=== PATIENT | female | born 1970 ===

== ENCOUNTER 2016-05-29 06:29 | Day surgery (SDC) | payer OTHER ==
[2016-05-19 10:17] VITALS: BMI 27.8
[2016-05-29 07:17] LABS: ADD MANUAL DIFF? NO
[2016-05-29 07:23] LABS: BASO # 0.03 K/mm3 (0.0-2.0); BASO % 0.8 % (0.0-3.0); EOS # 0.2 (0.0-0.7); EOS % 4.6 % (1.5-5.0); GRAN # 1.49 (1.4-6.5); GRAN % 38.3 % (50.0-68.0); HEMATOCRIT 39.7 % (36.0-48.0); LYMPH # 1.9 (1.2-3.4); LYMPH % 47.6 % (22.0-35.0); MEAN CELL VOLUME 86.1 fL (80.0-105.0); MEAN CORPUSCULAR HEMOGLOBIN 30.8 pg (25.0-35.0); MEAN CORPUSCULAR HGB CONC 35.8 g/dl (31.0-37.0); MEAN PLATELET VOLUME 9.9 fl (7.0-11.0); MONO # 0.3 (0.1-0.6); MONO % 8.7 % (1.0-6.0); PLATELET COUNT 207 10^3/uL (120.0-450.0); RED CELL DISTRIBUTION WIDTH 12.7 % (11.5-14.5); WHITE BLOOD COUNT 3.9 10^3/ul (4.5-11.0)
[2016-05-29 07:35] LABS: INR 1.07 (0.93-1.08)
[2016-05-29 07:41] LABS: ALB/GLOB RATIO 1.2 (1.1-1.8); ALKALINE PHOSPHATASE 81 U/L (38-133); ALT/SGPT 27 U/L (7-56); AST/SGOT 37 U/L (15-39); BILIRUBIN,TOTAL 1.1 mg/dL (0.2-1.3); BLOOD UREA NITROGEN 14 mg/dL (7-21); CALCIUM 9.3 mg/dL (8.4-10.5); CARBON DIOXIDE 28 mmol/L (21-33); CHLORIDE 103 mmol/L (98-107); GFR AFRICAN-AMERICAN > 60; GLUCOSE,RANDOM 88 mg/dL (70-110); SODIUM 141 mmol/L (132-148); TOTAL PROTEIN 7.8 g/dL (5.8-8.3)
[2016-05-29] MEDS ORDERED: Propofol 10 mg/ml Inj (20 ML) ONE (08:19)
[2016-05-29] MEDS ORDERED: Lidocaine 2% Inj (20ml) ONE (08:19)
[2016-05-29] MEDS ORDERED: Lactated Ringer's 1,000 ML IV SCH (09:00)
[2016-05-29 09:03] VITALS: TEMP 97.9
[2016-05-29 10:03] VITALS: BP 113/76; PULSE 63; RESP 16; O2SAT 100
== END 2016-05-29 10:07 | disposition home or self-care (01) ==
LOC: ENDO 06:29
PROVIDERS: ATTEND Internal Medicine
DX: K57.10 Diverticulosis of small intestine without perforation or abscess without bleeding (principal); K83.8 Other specified diseases of biliary tract; K29.70 Gastritis, unspecified, without bleeding
CPT/HCPCS: 36415; 43259; 80053; 84703; 85025; 85610; 85730; J2704; J7040; J7120

== ENCOUNTER 2016-08-20 15:18 | Emergency (ER) | payer OTHER ==
[2016-08-20 15:41] VITALS: BMI 29.4
[2016-08-20 15:43] VITALS: BP 115/78; PULSE 70; RESP 16; TEMP 98.1; O2SAT 99
--- NOTE | 2016-08-20 16:18 | ED PDOC ---
Arrival/HPI - General Chief Complaint: Lower Extremity Problem/Injury Time Seen by Provider: 08/20/16 15:58 Historian: Patient - History of Present Illness Narrative History of Present Illness (Text): 08/20/16 15:55 A 46 year old female presents to the emergency department complaining of dorsal right foot pain after accidentally dropping a table on it yesterday. Patient denies any knee pain or other complaints at this time. PMD: Dr. Hernández Time/Duration: 24 hours Symptom Onset: Sudden Symptom Course: Unchanged Quality: Other Activities at Onset: Rest Context: Home Past Medical History - Provider Review Nursing Documentation Reviewed: Yes - Past Medical History Past Medical History: No Previous - Cardiac Hx Pacemaker: No - Pulmonary Hx Asthma: Yes - Neurological Hx Paralysis: No - HEENT Hx HEENT Disorder: No - Renal Hx Renal Disorder: No - Hematological/Oncological Hx Blood Transfusions: No Hx Blood Transfusion Reaction: No - Musculoskeletal/Rheumatological Hx Musculoskeletal Disorders: Yes Hx Arthritis: Yes - Genitourinary/Gynecological Hx Genitourinary Disorders: No - Psychiatric Hx Emotional Abuse: No Hx Physical Abuse: No Hx Substance Use: No - Surgical History Hx Appendectomy: Yes Hx Tonsillectomy: Yes - Anesthesia Hx Anesthesia: Yes Hx Anesthesia Reactions: No Hx Malignant Hyperthermia: No - Suicidal Assessment Feels Threatened In Home Enviroment: No Family/Social History - Physician Review Nursing Documentation Reviewed: Yes Family/Social History: Unknown Family HX Smoking Status: Light Smoker < 10 Cigarettes Daily Hx Alcohol Use: Yes (ON OCCASION) Frequency of alcohol use: Socially Hx Substance Use: No Hx Substance Use Treatment: No Allergies/Home Meds Allergies/Adverse Reactions: Allergies Penicillins Allergy (Severe, Verified 08/20/16 15:41) ANAPHYLAXIS NOVALGIN Allergy (Severe, Uncoded 08/20/16 15:41) ANAPHYLAXIS Home Medications: Home Meds Medication Instructions Recorded Confirmed Albuterol HFA [Ventolin HFA 90 1 puff IH Q4H PRN 03/18/16 08/20/16 mcg/actuation (8 g)] Pantoprazole Sodium [Protonix] 40 mg PO BID 03/18/16 08/20/16 Cyclobenzaprine [Cyclobenzaprine 10 mg PO DAILY 04/28/16 08/20/16 HCl] Ondansetron ODT [Zofran ODT] 4 mg PO Q8H 04/28/16 08/20/16 Polyethylene Glycol 3350 [Miralax] 17 gm PO DAILY PRN 04/28/16 08/20/16 Mv,Min10/Folic Acid/D3/Ala/Lut 1 tab PO DAILY 05/19/16 08/20/16 [Strovite One Caplet] Naproxen [Naprosyn] 500 mg PO BID 05/29/16 08/20/16 Ibuprofen [Motrin Tab] 600 mg PO Q6H 08/20/16 08/20/16 Physical Exam - Physical Exam Narrative Physical Exam (Text): - Review of Systems Constitutional: Normal. absent: Fatigue, Weight Change, Fevers Eyes: Normal ENT: Normal Respiratory: Normal absent: SOB, Cough, Sputum Cardiovascular: Normal absent: Chest pain, Palpitations, Syncope Gastrointestinal: Normal absent: Abdominal pain, Diarrhea, Nausea, Vomiting Genitourinary: Normal. absent: Dysuria, Frequency, Hematuria Musculoskeletal: Right foot pain. absent: Arthralgias, Back Pain, Neck Pain Skin: Normal Neurological: Normal absent: Focal Weakness Endocrine: Normal Hemo/Lymphatic: Normal Psychiatric: Normal - Physical exam Patient appears age appropriate, speaking full sentences without difficulty. - Systems Exam Head: Present: Atraumatic, Normocephalic Pupils: Present: PERRL Extraocular Muscles: Present: EOMI Conjunctiva: Present: Normal Mouth: Present: Moist Mucous Membranes Neck: Present: Normal Range of Motion. No: MIDLINE TENDERNESS, Paraspinal Tenderness Respiratory/Chest: Present: Clear to Auscultation, Good Air Exchange. No: Respiratory Distress, Accessory Muscle Use, Tachypneic Cardiovascular: Present: Regular Rate and Rhythm, Normal S1, S2, Peripheral Pulses Present. No: Murmurs Abdomen: Present: Normal Bowel Sounds, No: Tenderness, Peritoneal Signs, Rebound, Guarding, Distention Back: Present: Normal Inspection. No: Midline Tenderness, Paraspinal Tenderness Upper Extremity: Present: Normal Inspection. No: Cyanosis, Edema Lower Extremity: Present: Normal Inspection. Tenderness with palpation to the dorsum of the right foot. Full active and passive range of motion to right foot. Right knee and ankle is unremarkable. Distal neurovascularly intact. No : Edema Neurological: Present: GCS=15, Speech Normal, cranial nerves II through XII fully intact with no cerebellar abnormality, neuro-sensory fully intact. No focal neurological deficits. Skin: Present: Warm, Dry, Normal Color. No: Rashes Lymphatic: Present: OX3, NI, NC Psychiatric: Present: Alert, Oriented x 3, Normal Insight, Normal Concentration Vital Signs Reviewed: Yes Vital Signs Temp Pulse Resp BP Pulse Ox 08/20/16 15:42 98.1 F 70 16 115/78 99 Temperature: Afebrile Blood Pressure: Normal Pulse: Regular Respiratory Rate: Normal Appearance: Positive for: Well-Appearing, Non-Toxic, Comfortable Pain Distress: None Mental Status: Positive for: Alert and Oriented X 3 Medical Decision Making ED Course and Treatment: 08/20/16 15:50 Impression: A 46 year old female with right dorsal foot pain. Physical examination reveals some tenderness to palpation of the dorsal right foot but right knee and ankle are unremarkable. Differential Diagnosis include but are not limited to: strain vs. sprain vs. fracture Plan: -- Right ankle X-ray -- Right Foot X-ray -- Toradol -- Reassess and disposition Progress Notes: 08/20/16 17:09 Right Ankle X-ray: As read by me. Impression: No acute fracture. Right Foot X-ray: As read by me. Impression: No acute fracture. 08/20/16 17:11 had an extensive d/w pt that although xrays are negative for any acute bony abnormality, it is still very important to fu with pmd and ortho specialist for further w/u and testing such as MRI to r/o any ligamentous/tendenous/meniscal injury. Pt verbalized full understanding of above discussion. pt ambulates with no assistance, in no distress Pt states she understands to return to the ER right away for new or worsening symptoms or for inability to f/u with PMD or specialist as instructed. Patient states that she fully agrees with and understands discharge instructions. States that she agrees with the plan and disposition. Verbalized and repeated discharge instructions and plan. I have given the patient opportunity to ask any additional questions. - RAD Interpretation Radiology Orders: 08/20/16 15:58 ANKLE RIGHT 3 VIEWS ROUTINE [RAD] Stat FOOT RIGHT 3 VIEWS ROUTINE [RAD] Stat - Medication Orders Current Medication Orders: Discontinued Medications Ketorolac Tromethamine (Toradol) 15 mg IM STAT STA Stop: 08/20/16 15:59 Last Admin: 08/20/16 16:25 Dose: 15 mg - Scribe Statement The provider has reviewed the documentation as recorded by the Paulaibe Vicky Hansen Provider Scribe Attestation: All medical record entries made by the [place] were at my direction and personally dictated by me. I have reviewed the chart and agree that the record accurately reflects my personal performance of the history, physical exam, medical decision making, and the department course for this patient. I have also personally directed, reviewed, and agree with the discharge instructions and disposition. Disposition/Present on Arrival - Present on Arrival Any Indicators Present on Arrival: No History of DVT/PE: No History of Uncontrolled Diabetes: No Urinary Catheter: No History of Decub. Ulcer: No History Surgical Site Infection Following: None - Disposition Have Diagnosis and Disposition been Completed?: Yes Diagnosis: Foot injury Disposition: HOME/ ROUTINE Disposition Time: 17:13 Patient Plan: Discharge Condition: GOOD Discharge Instructions (ExitCare): Crush Injury (ED), Foot Sprain (ED) Additional Instructions: Please take [id number] Motrin or Tylenol for pain. PLEASE RETURN TO THE EMERGENCY DEPARTMENT FOR NEW OR WORSENING SYMPTOMS. RETURN RIGHT AWAY IF YOU CANNOT FOLLOW UP WITH YOUR PRIMARY CARE DOCTOR, CLINIC, OR SPECIALIST IN 1-2 DAYS. Referrals: Mark Hernández JD, MD [Primary Care Provider] - Follow up with primary
--- NOTE | 2016-08-20 17:12 | RAD ---
PROCEDURE: Right Ankle Radiographs. HISTORY: pain COMPARISON: None FINDINGS: BONES: Normal. No fracture. JOINTS: Normal. No osteoarthritis. Ankle mortise maintained. Talar dome intact SOFT TISSUES: Normal. OTHER FINDINGS: None. IMPRESSION: Normal right ankle radiographs.
--- NOTE | 2016-08-20 17:14 | RAD ---
PROCEDURE: Right Foot Radiographs. HISTORY: pain COMPARISON: None. FINDINGS: BONES: Normal. No fracture. JOINTS: Normal. SOFT TISSUES: Normal. OTHER FINDINGS: None. IMPRESSION: Normal right foot radiographs.
== END 2016-08-20 17:30 | disposition home or self-care (01) ==
LOC: ED 15:18
DX: S99.921A Unspecified injury of right foot, initial encounter (principal); W20.8XXA Other cause of strike by thrown, projected or falling object, initial encounter; Y92.009 Unspecified place in unspecified non-institutional (private) residence as the place of occurrence of the external cause; F17.210 Nicotine dependence, cigarettes, uncomplicated
CPT/HCPCS: 73610; 73630; 96372; 99283; J1885

== ENCOUNTER 2016-09-05 00:39 | Emergency (ER) | payer OTHER ==
[2016-09-05 00:57] VITALS: BMI 27.3
[2016-09-05 00:58] VITALS: RESP 16; TEMP 97.9; O2SAT 97
--- NOTE | 2016-09-05 01:18 | ED PDOC ---
Arrival/HPI - General Historian: Patient - History of Present Illness Time/Duration: Other (yesterday ) Symptom Onset: Gradual Severity Level: Mild Activities at Onset: Light - General Chief Complaint: High Blood Pressure Time Seen by Provider: 09/05/16 00:47 - History of Present Illness Narrative History of Present Illness (Text): 09/05/16 01:17 Dania Culp is a 46 year old female, with a history of asthma, arthritis and appendectomy, presents to the emergency department complaining of diffuse body aches and diaphoresis since yesterday. Patient also complains of nasal congestion and headache discomfort which radiates to her ears. Denies any chest pain or difficulty breathing. Denies any fever, chills, dizziness, nausea, vomiting, diarrhea, urinary symptoms, or any other complaints at this time. (Douglas Lara) Past Medical History - Provider Review Nursing Documentation Reviewed: Yes - Past Medical History Past Medical History: No Previous - Cardiac Hx Pacemaker: No - Pulmonary Hx Asthma: Yes - Neurological Hx Paralysis: No - HEENT Hx HEENT Disorder: No - Renal Hx Renal Disorder: No - Hematological/Oncological Hx Blood Transfusions: No Hx Blood Transfusion Reaction: No - Musculoskeletal/Rheumatological Hx Musculoskeletal Disorders: Yes Hx Arthritis: Yes - Genitourinary/Gynecological Hx Genitourinary Disorders: No - Psychiatric Hx Emotional Abuse: No Hx Physical Abuse: No Hx Substance Use: No - Surgical History Hx Appendectomy: Yes Hx Tonsillectomy: Yes - Anesthesia Hx Anesthesia: Yes Hx Anesthesia Reactions: No Hx Malignant Hyperthermia: No - Suicidal Assessment Feels Threatened In Home Enviroment: No Family/Social History - Physician Review Nursing Documentation Reviewed: Yes Family/Social History: No Known Family HX Smoking Status: Light Smoker < 10 Cigarettes Daily Hx Alcohol Use: Yes (ON OCCASION) Hx Substance Use: No Hx Substance Use Treatment: No Allergies/Home Meds Allergies/Adverse Reactions: Allergies Penicillins Allergy (Severe, Verified 09/05/16 01:02) ANAPHYLAXIS NOVALGIN Allergy (Severe, Uncoded 09/05/16 01:02) ANAPHYLAXIS Home Medications: Home Meds Medication Instructions Recorded Confirmed Albuterol HFA [Ventolin HFA 90 1 puff IH Q4H PRN 03/18/16 09/05/16 mcg/actuation (8 g)] Pantoprazole Sodium [Protonix] 40 mg PO BID 03/18/16 09/05/16 Cyclobenzaprine [Cyclobenzaprine 10 mg PO DAILY 04/28/16 09/05/16 HCl] Ondansetron ODT [Zofran ODT] 4 mg PO Q8H 04/28/16 09/05/16 Polyethylene Glycol 3350 [Miralax] 17 gm PO DAILY PRN 04/28/16 09/05/16 Mv,Min10/Folic Acid/D3/Ala/Lut 1 tab PO DAILY 05/19/16 09/05/16 [Strovite One Caplet] Naproxen [Naprosyn] 500 mg PO BID 05/29/16 09/05/16 Ibuprofen [Motrin Tab] 600 mg PO Q6H 08/20/16 09/05/16 Indomethacin [Indocin] 25 mg PO Q8H 09/05/16 09/05/16 Review of Systems - Physician Review All systems were reviewed & negative as marked: Yes - Review of Systems Constitutional: Fatigue. absent: Fevers Respiratory: absent: SOB, Cough, Sputum Cardiovascular: absent: Chest Pain, Palpitations Gastrointestinal: Normal. absent: Abdominal Pain, Diarrhea, Nausea, Vomiting Genitourinary Female: Normal. absent: Dysuria Neurological: Headache. absent: Dizziness Endocrine: Diaphoresis Psychiatric: Normal Physical Exam Vital Signs Reviewed: Yes Temperature: Afebrile Blood Pressure: Normal Pulse: Regular Respiratory Rate: Normal Appearance: Positive for: Well-Appearing, Non-Toxic, Comfortable Pain Distress: None Mental Status: Positive for: Alert and Oriented X 3 - Systems Exam Head: Present: Atraumatic, Normocephalic Pupils: Present: PERRL Extroacular Muscles: Present: EOMI Conjunctiva: Present: Normal Mouth: Present: Moist Mucous Membranes Respiratory/Chest: Present: Clear to Auscultation, Good Air Exchange. No: Respiratory Distress, Accessory Muscle Use Cardiovascular: Present: Regular Rate and Rhythm, Normal S1, S2. No: Murmurs Abdomen: Present: Normal Bowel Sounds. No: Tenderness, Distention, Peritoneal Signs Upper Extremity: Present: Normal Inspection. No: Cyanosis, Edema Lower Extremity: Present: Normal Inspection. No: Edema Neurological: Present: GCS=15, CN II-XII Intact, Speech Normal, Motor Func Grossly Intact, Normal Sensory Function Skin: Present: Warm, Dry, Normal Color. No: Rashes Psychiatric: Present: Alert, Oriented x 3, Normal Insight, Normal Concentration Medical Decision Making Re-evaluation Time: 02:50 Reassessment Condition: Re-examined, Improved - Lab Interpretations I have reviewed the lab results: Yes - EKG Interpretation Interpreted by ED Physician: Yes Type: 12 lead EKG ED Course and Treatment: 09/05/16 01:23 Impression: A 46 year old female who presents to the emergency department complaining of chest pain and headache since yesterday. Plan: -- EKG -- Labs, cardiac enzymes -- Chest X-ray -- POC Urine -- Urinalysis -- Reassess and disposition Progress Notes: 09/05/16 01:24 EKG reviewed by me: NSR @ 69 bpm. Normal [place]. Normal interval. 09/05/16 02:56 On re-evaluation, patient feels better and is in no acute distress. I have discussed the results and plan with the patient, who expresses understanding. Patient in agreement with plan to be discharged home. Patient is stable for discharge. Patient was instructed to follow up with physician or return if symptoms worsen or new concerning symptoms arise. (Douglas Lara) 09/07/16 14:19 I spoke with patient regarding urine culture report. She stated she does have urinary frequency, and urgency. She asked me to call [facility]. I spoke with Pharmacist and gave verbal order for Bactrim DS, and Pyridium. Patient understood plan, and she has an appointment to see her doctor tomorrow. (Franki Kern) - Lab Interpretations Microbiology Results: Microbiology Results 09/05/16 01:17 Urine,Clean Catch Urine Culture - Final Escherichia Coli Lab Results: 09/05/16 01:15 09/05/16 01:15 Lab Results 09/05/16 01:17: Urine Color Yellow, Urine Appearance Clear, Urine pH 6.0, Ur Specific [place] >= 1.030, Urine Protein Negative, Urine Glucose (UA) Negative, Urine Ketones Negative, Urine Blood Negative, Urine Nitrate Negative, Urine Bilirubin Negative, Urine Urobilinogen 0.2, Ur Leukocyte Esterase Trace H, Urine RBC 0 - 2, Urine WBC 1 - 3, Ur Epithelial Cells 4 - 5, Urine Bacteria Rare 09/05/16 01:15: Sodium 139, Potassium 3.2 L, Chloride 105, Carbon Dioxide 22, Anion Gap 15, BUN 13, Creatinine 0.6, Est GFR ( Amer) > 60, Est GFR (Non- Af Amer) > 60, Random Glucose 170 H, Calcium 9.1, Magnesium 2.0, Total Bilirubin 0.4, AST 34, ALT 30, Alkaline Phosphatase 77, Lactate Dehydrogenase 485, Total Creatine Kinase 113, Troponin I < 0.01, Total Protein 6.9, Albumin 4.0, Globulin 2.9, Albumin/Globulin Ratio 1.4 09/05/16 01:15: WBC 3.5 L, RBC 4.39, Hgb 13.7, Hct 37.4, MCV 85.2, MCH 31.2, MCHC 36.6, RDW 12.3, Plt Count 153, MPV 10.2, Gran % 36.8 L, Lymph % (Auto) 49.1 H, [place] % (Auto) 7.5 H, Eos % (Auto) 5.5 H, Baso % (Auto) 1.1, Gran # 1.28 L, Lymph # 1.7, [place] # 0.3, Eos # 0.2, Baso # 0.04 - RAD Interpretation Radiology Orders: 09/05/16 01:01 CHEST PORTABLE [RAD] Stat - Scribe Statement The provider has reviewed the documentation as recorded by the Scribe - Scribe Statement Garret May (Douglas Lara) Provider Attestation: Provider Scribe Attestation: All medical record entries made by the Scribe were at my direction and personally dictated by me. I have reviewed the chart and agree that the record accurately reflects my personal performance of the history, physical exam, medical decision making, and the department course for this patient. I have also personally directed, reviewed, and agree with the discharge instructions and disposition. (Douglas Lara) Disposition/Present on Arrival - Present on Arrival Any Indicators Present on Arrival: No History of DVT/PE: No History of Uncontrolled Diabetes: No Urinary Catheter: No History of Decub. Ulcer: No History Surgical Site Infection Following: None - Disposition Have Diagnosis and Disposition been Completed?: Yes Disposition Time: 02:50 - Disposition Diagnosis: Diabetes mellitus Disposition: HOME/ ROUTINE Condition: GOOD Discharge Instructions (ExitCare): Diabetes Mellitus Type 2 in Adults (ED) Referrals: Mark Hernández JD, MD [Primary Care Provider] - Follow up with primary
[2016-09-05 01:40] LABS: BASO # 0.04 K/mm3 (0.0-2.0); BASO % 1.1 % (0.0-3.0); EOS # 0.2 (0.0-0.7); EOS % 5.5 % (1.5-5.0); GRAN # 1.28 (1.4-6.5); GRAN % 36.8 % (50.0-68.0); HEMOGLOBIN 13.7 gm/dL (12.0-16.0); LYMPH # 1.7 (1.2-3.4); LYMPH % 49.1 % (22.0-35.0); MEAN CELL VOLUME 85.2 fL (80.0-105.0); MEAN CORPUSCULAR HEMOGLOBIN 31.2 pg (25.0-35.0); MEAN CORPUSCULAR HGB CONC 36.6 g/dl (31.0-37.0); MEAN PLATELET VOLUME 10.2 fl (7.0-11.0); MONO # 0.3 (0.1-0.6); MONO % 7.5 % (1.0-6.0); PLATELET COUNT 153 10^3/uL (120.0-450.0); RBC 4.39 10^6/uL (3.5-6.1); RED CELL DISTRIBUTION WIDTH 12.3 % (11.5-14.5); WHITE BLOOD COUNT 3.5 10^3/ul (4.5-11.0)
[2016-09-05 01:46] LABS: ALB/GLOB RATIO 1.4 (1.1-1.8); ALT/SGPT 30 U/L (7-56); AST/SGOT 34 U/L (15-39); BLOOD UREA NITROGEN 13 mg/dL (7-21); CALCIUM 9.1 mg/dL (8.4-10.5); GFR AFRICAN-AMERICAN > 60; GFR NON-AFRICAN AMERICAN > 60
[2016-09-05 01:49] LABS: URINE BILIRUBIN NEGATIVE (NEGATIVE); URINE BLOOD NEGATIVE (NEGATIVE); URINE GLUCOSE (UA) NEGATIVE (NEGATIVE); URINE LEUKOCYTE ESTERASE TRACE Leu/uL (NEGATIVE); URINE NITRATE NEGATIVE (NEGATIVE); URINE PROTEIN NEGATIVE mg/dL (<30 mg/dL); URINE UROBILINOGEN 0.2 E.U./dL (<1 E.U./dL)
[2016-09-05 01:54] LABS: URINE APPEARANCE CLEAR (CLEAR); URINE COLOR YELLOW (YELLOW)
[2016-09-05 02:13] LABS: TROPONIN I < 0.01 ng/mL
[2016-09-05 02:36] LABS: URINE BACTERIA RARE (NEG); URINE RBC 0 - 2 /hpf (0-2)
[2016-09-05 03:01] VITALS: BP 110/69; PULSE 72
--- NOTE | 2016-09-05 07:37 | RAD ---
HISTORY: cp COMPARISON: 09/15/2014 FINDINGS: LUNGS: No active pulmonary disease. PLEURA: No significant pleural effusion identified, no pneumothorax apparent. CARDIOVASCULAR: Normal. OSSEOUS STRUCTURES: No significant abnormalities. VISUALIZED UPPER ABDOMEN: Normal. OTHER FINDINGS: None. IMPRESSION: No active disease.
--- NOTE | 2016-09-05 12:40 | CARD ---
APPROVED REPORT EKG Measurement Heart [id number] <Conclusion> Normal sinus rhythm Normal ECG
== END 2016-09-05 03:06 | disposition home or self-care (01) ==
LOC: ED 00:39
DX: E11.9 Type 2 diabetes mellitus without complications (principal); F17.210 Nicotine dependence, cigarettes, uncomplicated

== ENCOUNTER 2017-05-01 01:29 | Emergency (ER) | payer OTHER ==
[2017-05-01 01:29] VITALS: BMI 27.3
[2017-05-01 01:44] VITALS: RESP 18; TEMP 98.2; O2SAT 98
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
[2017-05-01 03:57] VITALS: BP 124/76; PULSE 99
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
== END 2017-05-01 03:56 | disposition home or self-care (01) ==
LOC: ED 01:29
DX: S09.90XA Unspecified injury of head, initial encounter (principal); V79.9XXA Bus occupant (driver) (passenger) injured in unspecified traffic accident, initial encounter; F17.210 Nicotine dependence, cigarettes, uncomplicated